=== PATIENT | female | born 1955 | race Caucasian/White ===

== ENCOUNTER 2018-10-13 08:47 | Day surgery (SDC) | payer OTHER ==
[2018-10-13] VITALS (7 sets, daily range): BP systolic 139–163; BP diastolic 70–88
[~2018-10-13] VITALS: Ht 167.6 cm; Wt 108.8 kg
[2018-10-13] MEDS ORDERED: LIDOcaine 1% 30ml preserv. free vial SQ STA (09:35)
[2018-10-13] MEDS ORDERED: URSO500T9 PO (10:10)
[2018-10-13] MEDS ORDERED: DEXL60CA3 PO (10:12)
[2018-10-13] MEDS ORDERED: URSO500T9 (10:13)
[2018-10-13] MEDS ORDERED: CA C1TAB95 PO (10:15)
[2018-10-13] MEDS ORDERED: ASCO500C15 PO (10:16)
[2018-10-13] MEDS ORDERED: CYAN-19 PO (10:16)
[2018-10-13] MEDS ORDERED: CHOL10002 PO (10:17)
[2018-10-13] MEDS ORDERED: MULT-38 PO (10:18)
[2018-10-13] MEDS ORDERED: FLAX1CAP6 PO (10:19)
[2018-10-13] MEDS ORDERED: MILK500C PO (10:20)
== END 2018-10-13 11:30 | disposition home or self-care (01) ==
LOC: SSTAY O 08:47
PROVIDERS: ATTEND Radiology Diagnostic Radiology
DX: L76.34 Postprocedural seroma of skin and subcutaneous tissue following other procedure (principal); Y83.8 Other surgical procedures as the cause of abnormal reaction of the patient, or of later complication, without mention of misadventure at the time of the procedure; Y92.89 Other specified places as the place of occurrence of the external cause; E66.9 Obesity, unspecified; K83.01 Primary sclerosing cholangitis; E78.5 Hyperlipidemia, unspecified; K21.0 Gastro-esophageal reflux disease with esophagitis; B37.81 Candidal esophagitis; Z88.1 Allergy status to other antibiotic agents; Z68.38 Body mass index [BMI] 38.0-38.9, adult; Z87.891 Personal history of nicotine dependence; Z85.828 Personal history of other malignant neoplasm of skin; Z90.710 Acquired absence of both cervix and uterus; Z90.49 Acquired absence of other specified parts of digestive tract; Z98.84 Bariatric surgery status; Z98.890 Other specified postprocedural states; Z79.899 Other long term (current) drug therapy
CPT/HCPCS: 10030; 87070

== ENCOUNTER 2019-01-17 08:25 | Observation (INO) | payer OTHER ==
[2019-01-16 11:03] LABS: BASOPHILS # (AUTO) 0.1 X10'3 (0-0.2); BASOPHILS % (AUTO) 0.9 % (0-1); EOSINOPHILS # (AUTO) 0.1 X10'3 (0-0.9); EOSINOPHILS % (AUTO) 1.2 % (0-6); LYMPHOCYTES # (AUTO) 1.6 X10'3 (1.1-4.8); LYMPHOCYTES % (AUTO) 25.7 % (21-51); MEAN CORPUSCULAR HEMOGLOBIN 29.7 PG (27.0-31.0); MEAN CORPUSCULAR HGB CONC 34.1 g/dL (33.0-36.5); MEAN CORPUSCULAR VOLUME 87.2 FL (78-98); MEAN PLATELET VOLUME 8.7 FL (7.4-10.4); MONOCYTES # (AUTO) 0.5 X10'3 (0-0.9); MONOCYTES % (AUTO) 7.9 % (2-12); NEUTROPHILS % (AUTO) 64.3 % (42-75); PRE OP HEMOGLOBIN 14.6 g/dL (12.0-16.0); PRE OP PLATELET COUNT 301 X10'3 (140-440); RED BLOOD COUNT 4.93 X10'6 (4.20-5.60); RED CELL DISTRIBUTION WIDTH 12.8 % (11.5-14.5)
[2019-01-16 11:04] LABS: CLARITY,URINE CLEAR (Clear); COLOR,URINE YELLOW (Yellow); GLUCOSE, URINE NEGATIVE (Neg); KETONES,URINE NEGATIVE (Neg); LEUKOCYTE ESTERASE ,URINE NEGATIVE (Neg); NITRITES, URINE NEGATIVE (Neg); OCCULT BLOOD,URINE NEGATIVE (Neg); PROTEIN,URINE NEGATIVE (Neg); UA COLLECTION TYPE CLN CATCH MIDSTREAM; UROBILINOGEN,URINE 0.2 E.U/dL (0.2-1.0)
[2019-01-16 11:18] LABS: ALBUMIN 3.4 G/DL (3.4-5.0); ALBUMIN/GLOBULIN RATIO 0.9 (1.1-1.5); ALKALINE PHOSPHATASE 81 IU/L (46-116); BLOOD UREA NITROGEN 11 MG/DL (7-18); BUN/CREATININE RATIO 14.9 (6.6-38.0); CALCIUM 9.3 MG/DL (8.5-10.1); CHLORIDE 101 MMOL/L (99-107); CREATININE 0.74 MG/DL (0.40-0.90); PRE OP ALT 51 U/L (30-65); PRE OP ANION GAP 8 (8-16); PRE OP AST 28 U/L (10-37); PRE OP BILIRUB, TOTAL 0.3 MG/DL (0.0-1.0); PRE OP GLUCOSE 96 MG/DL (70-104); PRE OP POTASSIUM 4.4 MMOL/L (3.4-5.1); PRE OP SODIUM 138 MMOL/L (135-145); TOTAL CARBON DIOXIDE 29.5 MMOL/L (24-32); eGFR 80 ML/MIN
[2019-01-16 11:22] LABS: PRE OP PROTIME 10.6 SECONDS (9.0-12.0)
[2019-01-17] VITALS (22 sets, daily range): BP systolic 137–170; BP diastolic 70–99
[~2019-01-17] VITALS: Ht 167.6 cm; Wt 106.5 kg
[~2019-01-17 08:25] MED LIST: ASCO500C15 PO; CA C1TAB95 PO; CHOL10002 PO; CYAN-19 PO; DEXL60CA3 PO; DOCUMENT DATE & TIME OF BETA-BLOCKER PO ONE; FLAX1CAP6 PO; MILK500C PO; MULT-38 PO; URSO500T9 PO; cefazolin/dext.iso 2gm/50ml 50 ML IV ONE; famotidine 20mg tablet PO ONE; ringers solution, lacted 1,000 ML IV SCH; scopolamine 1.5mg patch.TD72 TD ONE
[2019-01-17] MEDS ORDERED: LIDOcaine 1% 30ml preserv. free vial ONE (11:48)
[2019-01-17] MEDS ORDERED: BUPIVAcaine/PF 2.5mg/ml (0.25%) 10ml vial ONE ×2 (11:48→13:14)
[2019-01-17] MEDS ORDERED: ceFAZolin 1000mg inj ONE (11:57)
[2019-01-17] MEDS ORDERED: sevoflurane 250ml liquid IH ONE (12:49)
[2019-01-17] MEDS ORDERED: midazolam 2 mg/2 ml injection ONE (12:52)
[2019-01-17] MEDS ORDERED: fentaNYL /PF 50mcg/ml 5ml ampule ONE (12:52)
[2019-01-17] MEDS ORDERED: ringers solution, lacted 1,000 ML IV SCH (13:39)
[2019-01-17] MEDS ORDERED: ondansetron/PF 4mg/2ml inj IV PRN ×3 (13:40→16:15)
[2019-01-17] MEDS ORDERED: meperidine/PF 25mg/ml syringe IV PRN ×2 (13:40)
[2019-01-17] MEDS ORDERED: morphine 4 MG/ML inj SYRINge IV PRN ×2 (13:40)
[2019-01-17] MEDS ORDERED: proCHLORperazine 10 MG/2 ml inj IV PRN (13:40)
[2019-01-17] MEDS ORDERED: propofol inj 20 ML IV ONE (14:38)
[2019-01-17] MEDS ORDERED: neostigmine methylsulfate 1 MG/ML 10ml vial ONE (14:38)
[2019-01-17] MEDS ORDERED: rocuronium 10mg/ml inj IV ONE (14:38)
[2019-01-17] MEDS ORDERED: dexamethasone sod phosphate 4mg/ml inj. ONE (14:38)
[2019-01-17] MEDS ORDERED: glycopyrrolate 0.2mg/ml inj ONE (14:38)
[2019-01-17] MEDS ORDERED: ondansetron/PF 4mg/2ml inj ONE (14:38)
[2019-01-17] MEDS ORDERED: LIDOcaine 2% (20mg/ml) 5ml vial ONE (14:38)
--- NOTE | 2019-01-17 15:05 | NUR ---
Received from OR via BED , accompanied by Anesthesiologist DR FELIZ and report given by Anesthesiolgist. PATIENT WAKING UP, DENIES PAIN, V/S STABLE, CSM INTACT, 20G PIV LUE , ABDOMEN DRESSING CDI WITH VIRAJ DRAIN MINIMAL OUT PUT SO FAR.
[2019-01-17] MEDS: meperidine/PF 25mg/ml syringe IV PRN ×3 (15:57→16:14)
[2019-01-17] MEDS ORDERED: potassium CL 20mEq in D5-1/2NS 1,000 ML IV SCH (16:13)
[2019-01-17] MEDS ORDERED: HYDROcodone/acetaminophen 5mg/325mg tablet PO PRN (16:15)
[2019-01-17] MEDS ORDERED: HYDROcodone/acetaminophen 10/325mg tab PO PRN ×2 (16:15)
--- NOTE | 2019-01-17 16:26 | NUR ---
Received patient report from recovery nurse Toby STOKES. Awaiting arrival to room 346B.
--- NOTE | 2019-01-17 16:45 | NUR ---
PATIENT A&OX4, STATES PAIN UNDER CONTROL AT THIS TIME, V/S STABLE, CSM INTACT, 20G PIV LUE , ABDOMEN DRESSING CDI WITH VIRAJ DRAIN MINIMAL OUT PUT SO FAR. PATIENT TAKEN TO 346B WITH ALL BELONGINGS AND HOOKED UP TO MONITORS IN ROOM AND REPORT GIVEN TO TRANSFORMER MECHANIC WHO HAS TAKEN OVER PATIENT CARE.
[2019-01-17] MEDS: potassium CL 20mEq in D5-1/2NS 1,000 ML IV SCH ×2 (17:24→23:52)
--- NOTE | 2019-01-17 18:32 | NUR ---
Patient in room [facility] 346. I have received report from Ashley STOKES and had the opportunity to ask questions and assume patient care. no signs of distress. call light in reach. visitors at bedside
--- NOTE | 2019-01-17 18:34 | NUR ---
Problems reprioritized. Patient report given, questions answered & plan of care reviewed with Keena STOKES.
[2019-01-17] MEDS: HYDROcodone/acetaminophen 5mg/325mg tablet PO PRN (19:11)
[2019-01-17] MEDS: ceFAZolin inj. 1,000 MG in dextrose 5%-water 50ml 50 ML IV SCH (23:52)
[2019-01-18] MEDS ORDERED: ceFAZolin inj. 1,000 MG in dextrose 5%-water 50ml 50 ML IV SCH ×2
[2019-01-18 00:05] VITALS: BP 152/78
[2019-01-18 04:30] VITALS: BP 141/73
[2019-01-18] MEDS: HYDROcodone/acetaminophen 5mg/325mg tablet PO PRN (05:10)
--- NOTE | 2019-01-18 06:00 | NUR ---
Patient in room [facility] 346. I have received report from Keena STOKES and had the opportunity to ask questions and assume patient care.
--- NOTE | 2019-01-18 06:29 | NUR ---
Problems reprioritized. Patient report given, questions answered & plan of care reviewed with Ashley STOKES. no signs of distress. call light in reach. watching tv. IV intact
[2019-01-18 07:27] VITALS: BP 140/68
[2019-01-18] MEDS: ceFAZolin inj. 1,000 MG in dextrose 5%-water 50ml 50 ML IV SCH (07:54)
[2019-01-18] MEDS: potassium CL 20mEq in D5-1/2NS 1,000 ML IV SCH (07:54)
[2019-01-18 11:47] VITALS: BP 143/78
[2019-01-18 12:25] VITALS: BP 146/85
[2019-01-18] MEDS ORDERED: HYDR-4383 PO (12:50)
--- NOTE | 2019-01-18 15:10 | NUR ---
Patient discharged with all belongings. IV taken out. W/C to front lobby. Family to take pt home. Rx delivered to bedside.
== END 2019-01-18 15:12 | disposition home or self-care (01) ==
LOC: PAS 08:25 → EDSTATUS 10:30 → SUR 3N 16:13
PROVIDERS: ADMIT Surgery; ATTEND Surgery
DX: K40.91 Unilateral inguinal hernia, without obstruction or gangrene, recurrent (principal)
CPT/HCPCS: 10140; 36415; 49565; 49568; 80053; 81003; 82948; 85025; 85610; 85730; 87070; 87075; 93005; 96365; 96366; 96375; A6449; C1781; G0378; J0690; J1100; J2001; J2175; J2250; J2270; J2405; J2704; J2710; J3010; J3490; J7060; J7120; A7000; C1713

== ENCOUNTER 2019-02-05 14:47 | Inpatient (IN) | payer OTHER ==
[~2019-02-05] VITALS: Ht 167.6 cm; Wt 106.8 kg
[~2019-02-05 14:47] MED LIST changes: -DOCUMENT DATE & TIME OF BETA-BLOCKER PO ONE; +HYDR-4383 PO; -cefazolin/dext.iso 2gm/50ml 50 ML IV ONE; -famotidine 20mg tablet PO ONE; -ringers solution, lacted 1,000 ML IV SCH; -scopolamine 1.5mg patch.TD72 TD ONE
[2019-02-05] MEDS ORDERED: ondansetron/PF 4mg/2ml inj IV ONE (15:10)
[2019-02-05] MEDS ORDERED: normal saline 1000ML IV soln IV ONE (15:10)
[2019-02-05 15:42] LABS: CLARITY,URINE CLEAR (Clear); COLOR,URINE YELLOW (Yellow); GLUCOSE, URINE NEGATIVE (Neg); KETONES,URINE >=80 mg/dl (Neg); LEUKOCYTE ESTERASE ,URINE NEGATIVE (Neg); NITRITES, URINE NEGATIVE (Neg); OCCULT BLOOD,URINE SMALL (Neg); PROTEIN,URINE TRACE mg/dl (Neg)
[2019-02-05 15:48] LABS: BASOPHILS # (AUTO) 0.1 X10'3 (0-0.2); BASOPHILS % (AUTO) 0.4 % (0-1); EOSINOPHILS % (AUTO) 0.2 % (0-6); HEMATOCRIT 42.5 % (35.0-45.0); HEMOGLOBIN 14.3 g/dl (12.0-16.0); LYMPHOCYTES # (AUTO) 1.2 X10'3 (1.1-4.8); LYMPHOCYTES % (AUTO) 7.5 % (21-51); MEAN CORPUSCULAR HEMOGLOBIN 28.9 PG (27.0-31.0); MEAN CORPUSCULAR HGB CONC 33.7 g/dL (33.0-36.5); MEAN CORPUSCULAR VOLUME 85.9 FL (78-98); MEAN PLATELET VOLUME 8.3 FL (7.4-10.4); MONOCYTES # (AUTO) 1.3 X10'3 (0-0.9); MONOCYTES % (AUTO) 7.6 % (2-12); NEUTROPHILS % (AUTO) 84.3 % (42-75); PLATELET COUNT 346 X10'3 (140-440); RED BLOOD COUNT 4.95 X10'6 (4.20-5.60); RED CELL DISTRIBUTION WIDTH 12.6 % (11.5-14.5); WHITE BLOOD COUNT 16.6 X10'3 (4.5-11.0)
[2019-02-05 15:50] LABS: UA COLLECTION TYPE CLN CATCH MIDSTREAM
[2019-02-05 15:51] LABS: BACTERIA,URINE FEW /HPF (Neg); MUCUS STRANDS FEW /LPF (Neg); SQUAMOUS EPITHELIAL CELL,UR MODERATE /LPF (FEW); WBC,URINE 0-4 /HPF (0-4)
[2019-02-05 15:51] LABS: INR 1.1 INR; PARTIAL THROMBOPLASTIN TIME 24 SECONDS (22-32); PROTHROMBIN TIME 10.9 SECONDS (9.0-12.0)
[2019-02-05 15:52] LABS: ALANINE AMINOTRANSFERASE 59 U/L (12-78); ALBUMIN 3.2 G/DL (3.4-5.0); ALBUMIN/GLOBULIN RATIO 0.8 (1.1-1.5); ALKALINE PHOSPHATASE 89 IU/L (46-116); ANION GAP 9 (8-16); ASPARTATE AMINO TRANSFERASE 40 U/L (10-37); BILIRUBIN,TOTAL 1.3 MG/DL (0.1-1.0); BLOOD UREA NITROGEN 11 MG/DL (7-18); BUN/CREATININE RATIO 16.2 (6.6-38.0); CALCIUM 9.4 MG/DL (8.5-10.1); CHLORIDE 97 MMOL/L (99-107); CREATININE 0.68 MG/DL (0.40-0.90); GLUCOSE 129 MG/DL (70-104); MAGNESIUM 1.6 MG/DL (1.5-2.4); POTASSIUM 3.4 MMOL/L (3.5-5.1); SODIUM 131 MMOL/L (135-145); TOTAL CARBON DIOXIDE 25.2 MMOL/L (24-32); TOTAL PROTEIN 7.1 G/DL (6.4-8.2); eGFR 88 ML/MIN
[2019-02-05] MEDS ORDERED: iohexol 300mg/ml 100ml inj. ONE (16:09)
[2019-02-05] MEDS ORDERED: vancomycin/NS 1 GM ADD-VANTAGE 250 ML IV ONE (16:40)
[2019-02-05] MEDS ORDERED: piperacillin/tazo 3.375gm/50ml 50 ML IV ONE (16:40)
[2019-02-05] MEDS ORDERED: magnesium 2GM in 50ml NS 50 ML IV PRN (17:00)
[2019-02-05] MEDS ORDERED: morphine 4 MG/ML inj SYRINge IV PRN ×2 (17:00)
[2019-02-05] MEDS ORDERED: HYDROcodone/acetaminophen 5mg/325mg tablet PO PRN (17:00)
[2019-02-05] MEDS ORDERED: potassium Cl 20 mEq SR tablet PO PRN (17:00)
[2019-02-05] MEDS ORDERED: magnesium 4gm in 100ml NS 100 ML IV PRN (17:00)
[2019-02-05] MEDS ORDERED: mag hydrox/Alum hydrox/simeth 30ml oral suspension PO PRN (17:00)
[2019-02-05] MEDS ORDERED: magnesium hydroxide 30ml (MOM) UD suspension PO PRN (17:00)
[2019-02-05] MEDS ORDERED: potassium Cl 40MEQ/NS 500ml 500 ML IV PRN ×2 (17:00)
[2019-02-05] MEDS: acetaminophen 325mg tablet PO PRN (17:26)
[2019-02-05 18:00] VITALS: BP 152/76
[2019-02-05] MEDS: vancomycin/NS 1 GM ADD-VANTAGE 250 ML IV SCH ×2 (18:12→20:11)
[2019-02-05] MEDS: potassium Cl 20 mEq SR tablet PO PRN ×2 (19:09→23:46)
[2019-02-05] MEDS: dextrose 5%-1/2 normal saline 1,000 ML IV SCH (19:10)
[2019-02-05] MEDS ORDERED: URSO500T9 PO (19:28)
--- NOTE | 2019-02-05 19:44 | NUR ---
PT concerned about ursodiol night time dose. Called MD to reconcile meds. MD ordered Ursodiol only, did not reconcile all meds.
--- NOTE | 2019-02-05 19:53 | NUR ---
Pharmacy called, only have 300mg capsules ursodiol. Placed one time order for 600mg, will ask pt to bring in home medication for dispensing.
[2019-02-05] MEDS ORDERED: Ursodiol 300mg capsule PO ONE (20:00)
[2019-02-05] MEDS ORDERED: Ursodiol 300mg capsule PO SCH (21:00)
[2019-02-05] MEDS: temazepam 15mg capsule PO PRN (22:14)
[2019-02-05] MEDS: piperacillin/tazo 3.375gm/50ml 50 ML IV SCH (23:43)
[2019-02-06] VITALS: BP 136/70
[2019-02-06] MEDS: acetaminophen 325mg tablet PO PRN (01:59)
[2019-02-06] MEDS: dextrose 5%-1/2 normal saline 1,000 ML IV SCH ×2 (02:01→14:18)
[2019-02-06 05:25] LABS: BASOPHILS # (AUTO) 0.1 X10'3 (0-0.2); BASOPHILS % (AUTO) 0.4 % (0-1); EOSINOPHILS % (AUTO) 0.1 % (0-6); HEMATOCRIT 36.4 % (35.0-45.0); HEMOGLOBIN 12.4 g/dl (12.0-16.0); LYMPHOCYTES # (AUTO) 1.1 X10'3 (1.1-4.8); LYMPHOCYTES % (AUTO) 8.2 % (21-51); MEAN CORPUSCULAR HEMOGLOBIN 29.2 PG (27.0-31.0); MEAN CORPUSCULAR HGB CONC 33.9 g/dL (33.0-36.5); MEAN PLATELET VOLUME 8.4 FL (7.4-10.4); MONOCYTES # (AUTO) 1.1 X10'3 (0-0.9); MONOCYTES % (AUTO) 7.9 % (2-12); NEUTROPHILS # (AUTO) 11.2 X10'3 (1.8-7.7); NEUTROPHILS % (AUTO) 83.4 % (42-75); PLATELET COUNT 265 X10'3 (140-440); RED BLOOD COUNT 4.24 X10'6 (4.20-5.60); RED CELL DISTRIBUTION WIDTH 12.5 % (11.5-14.5); WHITE BLOOD COUNT 13.5 X10'3 (4.5-11.0)
[2019-02-06 05:55] LABS: ALANINE AMINOTRANSFERASE 60 U/L (12-78); ALBUMIN 2.3 G/DL (3.4-5.0); ALBUMIN/GLOBULIN RATIO 0.7 (1.1-1.5); ALKALINE PHOSPHATASE 68 IU/L (46-116); ANION GAP 10 (8-16); ASPARTATE AMINO TRANSFERASE 43 U/L (10-37); BLOOD UREA NITROGEN 9 MG/DL (7-18); BUN/CREATININE RATIO 15.3 (6.6-38.0); CALCIUM 8.3 MG/DL (8.5-10.1); CHLORIDE 101 MMOL/L (99-107); CREATININE 0.59 MG/DL (0.40-0.90); GLUCOSE 126 MG/DL (70-104); MAGNESIUM 1.4 MG/DL (1.5-2.4); POTASSIUM 3.5 MMOL/L (3.5-5.1); SODIUM 134 MMOL/L (135-145); TOTAL PROTEIN 5.5 G/DL (6.4-8.2); eGFR > 90 ML/MIN
--- NOTE | 2019-02-06 06:23 | NUR ---
Patient in room [facility] 354. I have received report from Abida STOKES and had the opportunity to ask questions and assume patient care.
--- NOTE | 2019-02-06 06:38 | NUR ---
Problems reprioritized. Patient report given, questions answered & plan of care reviewed with DIVYA Willard.
[2019-02-06 06:39] VITALS: BP 122/74
[2019-02-06] MEDS: piperacillin/tazo 3.375gm/50ml 50 ML IV SCH ×2 (07:10→16:05)
[2019-02-06] MEDS: K and/or MAG REPLACEMENT MC SCH (07:18)
[2019-02-06] MEDS: enoxaparin 40mg/0.4ml syringe SUBCUT SCH (07:18)
[2019-02-06] MEDS: ondansetron/PF 4mg/2ml inj IV PRN (08:37)
[2019-02-06 12:04] VITALS: BP 141/76
[2019-02-06] MEDS ORDERED: LIDOcaine 1%/PF 5ML 10 MG/ML VIAL ONE (12:33)
[2019-02-06 13:39] VITALS: BP 138/88
[2019-02-06 13:57] VITALS: BP 140/77
[2019-02-06] MEDS: magnesium Cl slow-release 64mg tablet PO PRN (14:17)
[2019-02-06] MEDS: HYDROcodone/acetaminophen 10/325mg tab PO PRN ×2 (14:26→21:04)
[2019-02-06 15:11] LABS: BFAPPEAR CLOUDY
[2019-02-06 15:12] LABS: BFCOLOR OTHER
--- NOTE | 2019-02-06 15:12 | NUR ---
patient was seen by IR for procedure see report. 400mls drained from seroma. patient tolerated procedure well. Family at bedside.
[2019-02-06 15:13] LABS: BF RBC COUNT 11350 /CU MM; BF WBC COUNT 9850 /CU MM (0-1000); BFVOLUME 54 ML; LYMPHOCYTES,BODY FLUID 3 %; NEUTROPHILS,BODY FLUID 97 %
--- NOTE | 2019-02-06 18:09 | NUR ---
patient restful at time of report. up adlib to bathroom. bandaide to drainage site CDI. Resting comfortably at time of report. repordt given to Jazzmine STOKES
--- NOTE | 2019-02-06 18:17 | NUR ---
Received report from DIVYA Willard. Patient is awake and alert on room air, in no apparent distress. Call light and items of frequent use within reach. Will continue to monitor.
[2019-02-06] MEDS: lactobacillus rhamnosus 10,000 MMU CELLS/CAPSULE PO SCH (19:45)
[2019-02-06 20:00] VITALS: BP 161/68
[2019-02-06] MEDS: temazepam 15mg capsule PO PRN (21:03)
[2019-02-07] VITALS: BP 122/68
[2019-02-07] MEDS: piperacillin/tazo 3.375gm/50ml 50 ML IV SCH ×4 (00:05→23:47)
[2019-02-07] MEDS: magnesium Cl slow-release 64mg tablet PO PRN (00:05)
[2019-02-07] MEDS: dextrose 5%-1/2 normal saline 1,000 ML IV SCH ×3 (00:05→10:21)
[2019-02-07] MEDS ORDERED: VANCOMYCIN LEVEL IV NR (02:30)
[2019-02-07 03:26] LABS: BASOPHILS # (AUTO) 0.1 X10'3 (0-0.2); BASOPHILS % (AUTO) 0.5 % (0-1); EOSINOPHILS # (AUTO) 0.1 X10'3 (0-0.9); EOSINOPHILS % (AUTO) 0.5 % (0-6); HEMATOCRIT 37.4 % (35.0-45.0); HEMOGLOBIN 12.7 g/dl (12.0-16.0); LYMPHOCYTES # (AUTO) 1.2 X10'3 (1.1-4.8); LYMPHOCYTES % (AUTO) 11.3 % (21-51); MEAN CORPUSCULAR HEMOGLOBIN 29.6 PG (27.0-31.0); MEAN CORPUSCULAR VOLUME 86.8 FL (78-98); MEAN PLATELET VOLUME 8.6 FL (7.4-10.4); MONOCYTES % (AUTO) 9.8 % (2-12); NEUTROPHILS # (AUTO) 8.2 X10'3 (1.8-7.7); NEUTROPHILS % (AUTO) 77.9 % (42-75); PLATELET COUNT 286 X10'3 (140-440); RED BLOOD COUNT 4.31 X10'6 (4.20-5.60); RED CELL DISTRIBUTION WIDTH 12.4 % (11.5-14.5); WHITE BLOOD COUNT 10.5 X10'3 (4.5-11.0)
[2019-02-07 03:42] LABS: ALANINE AMINOTRANSFERASE 55 U/L (12-78); ALBUMIN 2.4 G/DL (3.4-5.0); ALBUMIN/GLOBULIN RATIO 0.7 (1.1-1.5); ALKALINE PHOSPHATASE 70 IU/L (46-116); ANION GAP 7 (8-16); ASPARTATE AMINO TRANSFERASE 27 U/L (10-37); BILIRUBIN,TOTAL 0.7 MG/DL (0.1-1.0); BLOOD UREA NITROGEN 10 MG/DL (7-18); CALCIUM 8.7 MG/DL (8.5-10.1); CHLORIDE 102 MMOL/L (99-107); CREATININE 0.83 MG/DL (0.40-0.90); GLUCOSE 99 MG/DL (70-104); MAGNESIUM 1.7 MG/DL (1.5-2.4); POTASSIUM 3.5 MMOL/L (3.5-5.1); SODIUM 135 MMOL/L (135-145); TOTAL CARBON DIOXIDE 26.1 MMOL/L (24-32); TOTAL PROTEIN 5.9 G/DL (6.4-8.2); eGFR 70 ML/MIN
[2019-02-07 03:45] LABS: VANCOMYCIN,TROUGH 21.8 UG/ML (6.0-14.0)
--- NOTE | 2019-02-07 03:56 | NUR ---
[facility] trough: 21.8, Orville, Pharmacist notified. Orville stated "the medication should be held."
--- NOTE | 2019-02-07 06:39 | NUR ---
Patient in room [facility] 354. I have received report from Felicita STOKES and had the opportunity to ask questions and assume patient care.
[2019-02-07 07:00] VITALS: BP 123/72
[2019-02-07] MEDS: K and/or MAG REPLACEMENT MC SCH (07:49)
[2019-02-07] MEDS: enoxaparin 40mg/0.4ml syringe SUBCUT SCH (07:55)
[2019-02-07] MEDS: nystatin 15 GM powder TP SCH ×3 (07:55→21:15)
[2019-02-07] MEDS: lactobacillus rhamnosus 10,000 MMU CELLS/CAPSULE PO SCH ×2 (07:56→19:10)
[2019-02-07 08:00] VITALS: BP 123/72
[2019-02-07] MEDS ORDERED: HYDROcodone/acetaminophen 5mg/325mg tablet PO PRN (08:25)
--- NOTE | 2019-02-07 10:16 | NUR ---
Student documentation: I have reviewed and agree with all interventions, assessments performed and documented by Shahnaz, nursing educator.
--- NOTE | 2019-02-07 10:16 | NUR ---
Student Medication Administration: For this medication-pass time frame, all medication were reviewed, dispensed, administered and documented per hospital policy by deyvi Christie student.
[2019-02-07] MEDS: multivitamins, therapeutics tablet PO SCH (10:20)
[2019-02-07] MEDS: pantoprazole 40mg Tablet.DR PO SCH (10:20)
[2019-02-07 12:00] VITALS: BP 140/67
--- NOTE | 2019-02-07 12:23 | NUR ---
Problems reprioritized. Patient report given, questions answered & plan of care reviewed with Felicita STOKES.
[2019-02-07] MEDS: calcium carbonate/vitamin D3 tablet PO SCH ×2 (12:39→17:54)
[2019-02-07] MEDS: vancomycin inj 1,250 MG in NS 250ml IV soln IV SCH ×2 (12:42→19:18)
--- NOTE | 2019-02-07 16:22 | NUR ---
Student documentation: I have reviewed and agree with all interventions, assessments performed and documented by Dre student nurse.
--- NOTE | 2019-02-07 18:32 | NUR ---
Received report from DIVYA Mims. Patient is awake and alert on room air, in no apparent distress. On telephone talking. Call light and items of frequent use within reach. Will continue to monitor.
--- NOTE | 2019-02-07 18:42 | NUR ---
Problems reprioritized. Patient report given, questions answered & plan of care reviewed with ARVIND STOKES.
[2019-02-07 19:00] VITALS: BP 143/70
[2019-02-07] MEDS: temazepam 15mg capsule PO PRN (21:15)
[2019-02-07] MEDS: HYDROcodone/acetaminophen 10/325mg tab PO PRN (21:15)
[2019-02-08] VITALS: BP 118/63
[2019-02-08] MEDS: vancomycin inj 1,250 MG in NS 250ml IV soln IV SCH (03:01)
[2019-02-08 05:16] LABS: BASOPHILS # (AUTO) 0.1 X10'3 (0-0.2); BASOPHILS % (AUTO) 0.7 % (0-1); EOSINOPHILS # (AUTO) 0.1 X10'3 (0-0.9); EOSINOPHILS % (AUTO) 1.4 % (0-6); HEMATOCRIT 33.9 % (35.0-45.0); HEMOGLOBIN 11.6 g/dl (12.0-16.0); LYMPHOCYTES % (AUTO) 12.6 % (21-51); MEAN CORPUSCULAR HEMOGLOBIN 29.6 PG (27.0-31.0); MEAN CORPUSCULAR HGB CONC 34.2 g/dL (33.0-36.5); MEAN CORPUSCULAR VOLUME 86.7 FL (78-98); MEAN PLATELET VOLUME 8.4 FL (7.4-10.4); MONOCYTES # (AUTO) 0.9 X10'3 (0-0.9); MONOCYTES % (AUTO) 11.4 % (2-12); NEUTROPHILS # (AUTO) 5.8 X10'3 (1.8-7.7); NEUTROPHILS % (AUTO) 73.9 % (42-75); PLATELET COUNT 256 X10'3 (140-440); RED BLOOD COUNT 3.91 X10'6 (4.20-5.60); RED CELL DISTRIBUTION WIDTH 12.2 % (11.5-14.5); WHITE BLOOD COUNT 7.9 X10'3 (4.5-11.0)
[2019-02-08 05:22] LABS: ALANINE AMINOTRANSFERASE 36 U/L (12-78); ALBUMIN/GLOBULIN RATIO 0.6 (1.1-1.5); ALKALINE PHOSPHATASE 59 IU/L (46-116); ANION GAP 8 (8-16); ASPARTATE AMINO TRANSFERASE 19 U/L (10-37); BILIRUBIN,TOTAL 0.5 MG/DL (0.1-1.0); BLOOD UREA NITROGEN 9 MG/DL (7-18); BUN/CREATININE RATIO 11.5 (6.6-38.0); CALCIUM 8.6 MG/DL (8.5-10.1); CHLORIDE 104 MMOL/L (99-107); CREATININE 0.78 MG/DL (0.40-0.90); GLUCOSE 90 MG/DL (70-104); MAGNESIUM 1.8 MG/DL (1.5-2.4); POTASSIUM 3.8 MMOL/L (3.5-5.1); SODIUM 138 MMOL/L (135-145); TOTAL CARBON DIOXIDE 26.2 MMOL/L (24-32); TOTAL PROTEIN 5.3 G/DL (6.4-8.2); eGFR 75 ML/MIN
--- NOTE | 2019-02-08 06:49 | NUR ---
Problems reprioritized. Patient report given, questions answered & plan of care reviewed with DIVYA Yanes.
[2019-02-08 07:00] VITALS: BP 133/64
--- NOTE | 2019-02-08 07:15 | NUR ---
Patient in room [facility] 354. I have received report from Jazzmine STOKES and had the opportunity to ask questions and assume patient care.
[2019-02-08] MEDS: pantoprazole 40mg Tablet.DR PO SCH (07:34)
[2019-02-08] MEDS: lactobacillus rhamnosus 10,000 MMU CELLS/CAPSULE PO SCH (07:34)
[2019-02-08] MEDS: piperacillin/tazo 3.375gm/50ml 50 ML IV SCH (07:34)
[2019-02-08] MEDS: multivitamins, therapeutics tablet PO SCH (07:44)
[2019-02-08] MEDS: calcium carbonate/vitamin D3 tablet PO SCH ×2 (07:44→12:34)
[2019-02-08] MEDS: enoxaparin 40mg/0.4ml syringe SUBCUT SCH (07:45)
[2019-02-08] MEDS: ondansetron/PF 4mg/2ml inj IV PRN (07:55)
[2019-02-08] MEDS: K and/or MAG REPLACEMENT MC SCH (08:00)
[2019-02-08] MEDS: nystatin 15 GM powder TP SCH (08:00)
[2019-02-08] MEDS ORDERED: VANCOMYCIN LEVEL IV ONE (10:30)
[2019-02-08] MEDS ORDERED: vancomycin/NS 1 GM ADD-VANTAGE 250 ML IV SCH (11:00)
[2019-02-08] MEDS ORDERED: levoFLOXACIN-Levaquin 500mg/D5 100 ML IV SCH (11:01)
[2019-02-08] MEDS ORDERED: LEVO500T2 PO (13:01)
[2019-02-08] MEDS ORDERED: levoFLOXACIN 500mg tablet PO ONE (13:15)
--- NOTE | 2019-02-08 13:30 | NUR ---
Patients discharge instructions reviewed with patient and patient verbalized understanding. Patients IV dc'd cannula intact. Patient states she has all her belongings. Patients home medications she brought in where returned to patient from our pharmacy. Patient had [facility] bedside delivery deliver her [facility] bedside. Patient was taken to vehicle.
[2019-02-09] MEDS ORDERED: VANCOMYCIN LEVEL IV ONE (12:30)
== END 2019-02-08 13:30 | disposition home or self-care (01) | DRG 856 ==
LOC: ER 14:48 → ED HOLD 16:58 → CMPBEDREQ 19:31 → SUR 3N 19:34
PROVIDERS: ADMIT Internal Medicine; ATTEND Family Medicine
PROC: 0W9F3ZX Drainage of Abdominal Wall, Percutaneous Approach, Diagnostic (ICD-10-PCS; principal; 2019-02-06)
DX: T81.41XA Infection following a procedure, superficial incisional surgical site, initial encounter (principal); E43 Unspecified severe protein-calorie malnutrition; K91.872 Postprocedural seroma of a digestive system organ or structure following a digestive system procedure; L02.211 Cutaneous abscess of abdominal wall; E87.1 Hypo-osmolality and hyponatremia; B96.1 Klebsiella pneumoniae [K. pneumoniae] as the cause of diseases classified elsewhere; E66.01 Morbid (severe) obesity due to excess calories; E83.42 Hypomagnesemia; E87.6 Hypokalemia; G47.00 Insomnia, unspecified; K75.89 Other specified inflammatory liver diseases; Y83.8 Other surgical procedures as the cause of abnormal reaction of the patient, or of later complication, without mention of misadventure at the time of the procedure; I10 Essential (primary) hypertension; Z68.38 Body mass index [BMI] 38.0-38.9, adult; Z90.710 Acquired absence of both cervix and uterus; Z88.1 Allergy status to other antibiotic agents; Z88.8 Allergy status to other drugs, medicaments and biological substances; Z79.899 Other long term (current) drug therapy
CPT/HCPCS: 36415; 49406; 71045; 74177; 80053; 80202; 81001; 83605; 83735; 84145; 85025; 85610; 85730; 87040; 87070; 87077; 87186; 89051; 93005; 96374; 99285; G0378; J1650; J2001; J2405; J2543; J3370; J7030; Q9967

== ENCOUNTER 2019-02-17 08:30 | Day surgery (SDC) | payer OTHER ==
[~2019-02-17 08:30] MED LIST changes: +LEVO500T2 PO
[2019-02-17] MEDS ORDERED: LIDOcaine 1%/PF 5ML 10 MG/ML VIAL ONE (09:25)
--- NOTE | 2019-02-17 15:17 | NUR ---
0830 Patient ambulated safely into [facility]. Patient admitted to outpatient wound care clinic for visit with physician. Patient assessed for conditions, medications and medical history. Patient showed no s/s of distress at time of assessment. See nursing assessment. [id number] at bedside accompanied by RN. Wounds assessed, time out performed and I&D of an incisional seroma was done today as detailed in the physician progress/procedure/OP note. Plan of care discussed with patient. Dressings placed per MD orders. Patient instructed on the signs and symptoms of infection and to call the Wound Center if any occur or to go to the ED if we are closed: Increased pain in wound Increase in drainage from the wound Redness in the skin surrounding the wound Bleeding from the wound Temperature of 101 or greater Patient instructed on how to empty bulb suction and to keep measurements every time she empties the suction bulb. Pt verbalizes understanding. States I've done this before. Patient verbalized understanding of all discharge instructions and plan of care. Patient ambulated independently out to [facility] and is in stable condition with no sign or symptom of distress at time of discharge.
== END 2019-02-17 10:45 | disposition home or self-care (01) ==
LOC: WOUND CARE 08:30
PROVIDERS: ATTEND Surgery
DX: L76.34 Postprocedural seroma of skin and subcutaneous tissue following other procedure (principal); I10 Essential (primary) hypertension; G47.00 Insomnia, unspecified; E66.01 Morbid (severe) obesity due to excess calories; E43 Unspecified severe protein-calorie malnutrition; K40.91 Unilateral inguinal hernia, without obstruction or gangrene, recurrent; F12.10 Cannabis abuse, uncomplicated; Z79.899 Other long term (current) drug therapy; Z68.38 Body mass index [BMI] 38.0-38.9, adult; Z90.710 Acquired absence of both cervix and uterus; Z90.49 Acquired absence of other specified parts of digestive tract
CPT/HCPCS: 10140; 87070; 87075; 87102; J2001; A6213

== ENCOUNTER 2019-02-23 15:25 | Outpatient (CLI) | payer OTHER ==
[~2019-02-23 15:25] MED LIST changes: -LEVO500T2 PO
--- NOTE | 2019-02-23 16:30 | NUR ---
1545 Patient ambulated safely into [facility]. Patient was sent over by Dr Burns. Patient admitted to outpatient wound care clinic for nurse visit to change VIRAJ bulb on her drain tube. Patient assessed for changes in conditions, medications and medical history. Patient showed no s/s of distress at time of assessment. VIRAJ bulb changed per Dr Woo verbal order. Patient instructed on the signs and symptoms of infection and to call the Wound Center if any occur or to go to the ED if we are closed: Increased pain in wound Increase in drainage from the wound Redness in the skin surrounding the wound Bleeding from the wound Temperature of 101 or greater Patient verbalized understanding of all discharge instructions and plan of care. Patient ambulated independently out to [facility] and is in stable condition with no sign or symptom of distress at time of discharge.
== END 2019-02-23 15:38 | disposition home or self-care (01) ==
LOC: WOUND CARE 15:25 → EDSTATUS 15:30 → WOUND CARE 15:38
PROVIDERS: ATTEND Surgery
DX: L76.34 Postprocedural seroma of skin and subcutaneous tissue following other procedure (principal); I10 Essential (primary) hypertension; G47.00 Insomnia, unspecified; E66.01 Morbid (severe) obesity due to excess calories; E43 Unspecified severe protein-calorie malnutrition; K40.91 Unilateral inguinal hernia, without obstruction or gangrene, recurrent; F12.10 Cannabis abuse, uncomplicated; Z79.899 Other long term (current) drug therapy; Z68.38 Body mass index [BMI] 38.0-38.9, adult; Z90.710 Acquired absence of both cervix and uterus; Z90.49 Acquired absence of other specified parts of digestive tract
CPT/HCPCS: A6213; G0463